=== PATIENT | female | born 1970 | race Caucasian/White ===

== ENCOUNTER 2016-11-15 10:47 | Emergency (ER) | payer OTHER ==
[2016-11-15] MEDS ORDERED: SODIUM CHLORIDE 0.9% 1,000 ML IV ONE ×2 (11:53→12:03)
[2016-11-15] MEDS ORDERED: DEXAMETHASONE 10 MG/ML VIAL PO STA (11:53)
[2016-11-15] MEDS ORDERED: KETOROLAC 60 MG/2 ML VIAL IVP STA (11:53)
[2016-11-15] MEDS ORDERED: KETOROLAC 30 MG/ML VIAL ONE (12:02)
[2016-11-15] MEDS ORDERED: CHERRY SYRUP 10 ML UDC PO ONE (12:03)
[2016-11-15] MEDS ORDERED: DEXAMETHASONE 10 MG/ML VIAL ONE (12:03)
[2016-11-15] MEDS ORDERED: IOPAMIDOL-300 100 ML VIAL IVP ONE (13:10)
[2016-11-15] MEDS ORDERED: cefTRIAXone 1 GM in SODIUM CHLORIDE 0.9% MINIBAG 100 ML IV STA (14:02)
[2016-11-15] MEDS ORDERED: cefTRIAXone 1 GM VIAL ONE (14:06)
== END 2016-11-15 15:07 | disposition home or self-care (01) ==
DX: K04.7 Periapical abscess without sinus (principal); F17.200 Nicotine dependence, unspecified, uncomplicated
CPT/HCPCS: 70491; 82565; 84703; 87070; 87430; 96374; 96375; 99283; A9270; Q9967

== ENCOUNTER 2017-01-29 11:30 | Outpatient (CLI) | payer OTHER | END 2017-01-29 11:31 | disposition home or self-care (01) | DX: M86.9 Osteomyelitis, unspecified (principal) ==

== ENCOUNTER 2018-08-19 08:00 | Outpatient (CLI) | payer OTHER ==
[2018-08-19 13:37] LABS: BILIRUBIN,URINE NEGATIVE (NEGATIVE); GLUCOSE, URINE (UA) NEGATIVE (NEGATIVE); KETONES,URINE (UA) NEGATIVE (NEGATIVE); LEUKOCYTE ESTERASE, URINE NEGATIVE (NEGATIVE); NITRITE,URINE NEGATIVE (NEGATIVE); OCCULT BLOOD,URINE NEGATIVE (NEGATIVE); PROTEIN,URINE NEGATIVE (NEGATIVE); UROBILINOGEN,URINE 0.2 (NORMAL) E.U./dL (NORMAL)
[2018-08-19 13:47] LABS: CLARITY,URINE CLEAR (CLEAR)
[2018-08-19 14:06] LABS: BACTERIA,URINE Rare /HPF (None Seen); RBC,URINE 0-5 /HPF (0-5); SQUAMOUS EPITHELIAL CELL,UR FEW Squamous (<= Few)
== END 2018-08-19 23:59 | disposition home or self-care (01) ==
LOC: LAB.WCP 08:00
PROVIDERS: ATTEND Family Medicine
DX: R10.9 Unspecified abdominal pain (principal)
CPT/HCPCS: 81001; 87086

== ENCOUNTER 2022-04-29 12:00 | Outpatient (CLI) | payer SELFPAY ==
[2022-04-29 19:08] LABS: FECAL OCCULT BLOOD (FIT) NEGATIVE (NEGATIVE)
== END 2022-04-29 23:59 | disposition home or self-care (01) ==
LOC: LAB.WCP 12:00
PROVIDERS: ATTEND Registered Nurse
DX: R19.7 Diarrhea, unspecified (principal)
CPT/HCPCS: 82274; 87045; 87046; 87177; 87328; 87427; 87493

== ENCOUNTER 2023-11-12 08:05 | Outpatient (CLI) | payer BC ==
[2023-11-12 11:46] LABS: BASOPHILS # (AUTO) 0.1 10^3/uL (0.0-0.1); BASOPHILS % (AUTO) 0.5 %; EOSINOPHILS # (AUTO) 0.2 10^3/uL (0.0-0.7); EOSINOPHILS % (AUTO) 1.7 %; HCT - HEMATOCRIT 47.1 % (37.0-47.0); HGB - HEMOGLOBIN 15.3 g/dL (12.0-16.0); LYMPHOCYTES # (AUTO) 3.8 10^3/uL (1.5-3.5); LYMPHOCYTES % (AUTO) 34.1 %; MEAN CORPUSCULAR HEMOGLOBIN 28.5 pg (27.0-31.0); MEAN CORPUSCULAR HGB CONC 32.5 g/dL (32.0-36.0); MEAN CORPUSCULAR VOLUME 87.7 fL (81.0-99.0); MEAN PLATELET VOLUME 10.7 fL (7.9-10.8); MONOCYTES # (AUTO) 0.8 10^3/uL (0.0-1.0); MONOCYTES % (AUTO) 7.1 %; NEUTROPHILS # (AUTO) 6.2 10^3/uL (1.5-6.6); NEUTROPHILS % (AUTO) 56.3 %; PLT - PLATELET COUNT 256 10^3/uL (130-450); RED BLOOD COUNT 5.37 10^6/uL (4.20-5.40); RED CELL DISTRIBUTION WIDTH 13.4 % (12.0-15.0); WHITE BLOOD COUNT 11.1 x10^3/uL (4.8-10.8)
== END 2023-11-12 08:06 | disposition home or self-care (01) ==
LOC: LAB.N 08:05
PROVIDERS: ATTEND Nurse Practitioner Family
DX: R03.0 Elevated blood-pressure reading, without diagnosis of hypertension (principal); E66.9 Obesity, unspecified
CPT/HCPCS: 36415; 85025

== ENCOUNTER 2023-12-09 12:52 | Outpatient (CLI) | payer BC ==
--- NOTE | 2023-12-09 20:04 | Ultrasound Report ---
PROCEDURE: Soft Tissue Head or Neck INDICATIONS: ENLARGED THYROID TECHNIQUE: Real-time scanning was performed of the thyroid gland, with image documentation. COMPARISON: None FINDINGS: Right: Thyroid lobe measures 5.1 x 2.0 x 2.0 cm, and is heterogeneous in echotexture. Left: Thyroid lobe measures 4.4 x 1.7 x 1.9 cm, and is heterogeneous in echotexture. Isthmus: 0.2 cm thick. Nodule number: One Location: Left inferior posterior Size: 0.9 x 0.6 x 0.7 cm. Composition: Solid (2 points). Echogenicity: Hypoechoic (2 points). Shape: wider than tall (0 points). Margins: Smooth (0 points). Echogenic foci: None (0 points). Total points: 4 ACR TI-RADS category: TI-RADS 4: Moderately suspicious. IMPRESSION: 1.Mildly enlarged and heterogeneous thyroid, which can be seen in the setting of thyroiditis. 2.Single subcentimeter left thyroid nodule that does not meet TI-RADS criteria for imaging follow-up. However, differential would also include a parathyroid adenoma in this location, and correlation to exclude hyperparathyroidism is recommended. ACR TI-RADS definitions and recommendations: TI-RADS 1 (benign): 0 points. FNA not needed. TI-RADS 2 (not suspicious): 2 points. FNA not needed. TI-RADS 3 (mildly suspicious): 3 points. "FNA if 2.5 cm or larger, follow up if 1.5 cm or larger (at 1, 3, and 5 years). TI-RADS 4 (moderately suspicious): 4-6 points. "FNA if 1.5 cm or larger, follow up if 1 cm or larger (at 1, 2, 3, and 5 years). TI-RADS 5 (highly suspicious): 7 points or more. "FNA if 1 cm or larger, follow up if 0.5 cm or larger (every year for 5 years). Reviewed by: Carl Camilo MD on 12/09/2023 8:02 PM PDT Approved by: Carl Camilo MD on 12/09/2023 8:02 PM PDT Station ID: [id number]
== END 2023-12-09 12:53 | disposition home or self-care (01) ==
LOC: DI 12:52
PROVIDERS: ATTEND Nurse Practitioner Family
DX: E04.1 Nontoxic single thyroid nodule (principal)

== ENCOUNTER 2023-12-10 12:28 | Outpatient (CLI) | payer BC ==
[2023-12-10 13:12] LABS: ALBUMIN 4.2 g/dL (3.2-5.5); ALBUMIN/GLOBULIN RATIO 1.2 (1.0-2.2); BILIRUBIN,TOTAL 0.3 mg/dL (0.2-1.0); CALCIUM 9.6 mg/dL (8.5-10.3); CREATININE 0.5 mg/dL (0.6-1.3); POTASSIUM 3.8 mmol/L (3.5-4.5); TOTAL PROTEIN 7.6 g/dL (6.4-8.9)
[2023-12-10 14:05] LABS: THYROID STIMULATING HORMONE 3.04 uIU/mL (0.34-5.60)
== END 2023-12-10 12:29 | disposition home or self-care (01) ==
LOC: LAB 12:28
PROVIDERS: ATTEND Nurse Practitioner Family
DX: E04.9 Nontoxic goiter, unspecified (principal); E66.9 Obesity, unspecified; R03.0 Elevated blood-pressure reading, without diagnosis of hypertension; Z13.6 Encounter for screening for cardiovascular disorders
CPT/HCPCS: 36415; 80053; 84439; 84443